=== PATIENT | female | born 1980 | race Hispanic/Latino ===

== ENCOUNTER 2018-02-18 09:39 | Outpatient (AMBR) | payer MEDICARE, MEDICAID, SELFPAY ==
--- NOTE | 2018-02-18 10:12 | PT.OIERPT ---
PT OP Initial Eval Patient Information Visit Reasons: CERVICAL/LUMBAR PAIN Medical Diagnosis: M05.7; M54.4 Treatment Dx #1: Neck Pain Start of Care: 02/18/18 Date of Onset: 5 year ago Initial Assessment Subjective Pt is a 37 y/o female c/o chronic neck pain (11/28) with intermittent numbness and tingling started several years ago. Pt has been dx with RA for many years and now it's taking a toll on her body. Pt has difficulty with sleeping, chores, self care activities, and performing normal ADLs. Pt stated that she is pending xray for her whole body. Objective C/S AROM: all motions are WFL but pain with end range flexion and sidebend bilaterally Scapula MMTs: grossly 3/5 BUE AROM: all motions are WNL BUE MMTs: grossly 3+/5 Deep Neck Flexor Endurance Test: 5 sec NDI score: 30% Assessment Pt demonstrate neck pain with decrease AROM leading to decline function and difficulty with ADLs. Pt will attempt physical therapy if pain persist Pt will be refer back to MD. Short Term and Microwave Remote Sensing Scientist Goals 1) Decrease neck pain and NDI to 10 % in 4 wks to be able to chores with less limitation 2) Increase C/S AROM WNL in 4 wks to be able to perform self care activities 3) Increase deep neck flexor endurance test to 30 sec in 4 wks to be able to perform driving with less limitation 4) Indep with HEP Treatment Plan 1) Manual Therapy 2) Therapeutic Activities 3) Therapeutic Exercises 4) Modalities (ice, heat, e-stim) Frequency and Duration 2 x wk for 4 wks Certification Dates: 02/18/18 to 05/21/18 Office Procedures PT Outpatient G-Codes Date of Service PT Date of Service: 02/18/18 G-Codes Changing & Maintaining Body Post Body Position Current Status G-Code: G8981: CJ 20-40% Body Position Goal Status G-Code: G8982: CI 1-20% PT Procedures PT Date of Service: 02/18/18 OP PT Eval Mod Complex 30 minutes: Yes
--- NOTE | 2018-02-18 10:21 | PTNOTE_ITS ---
PT OP Initial Eval Patient Information Visit Reasons: CERVICAL/LUMBAR PAIN Medical Diagnosis: M05.7; M54.4 Treatment Dx #1: Neck Pain Start of Care: 02/18/18 Date of Onset: 5 year ago Initial Assessment Subjective Pt is a 37 y/o female c/o chronic neck pain (11/28) with intermittent numbness and tingling started several years ago. Pt has been dx with RA for many years and now it's taking a toll on her body. Pt has difficulty with sleeping, chores , self care activities, and performing normal ADLs. Pt stated that she is pending xray for her whole body. Objective C/S AROM: all motions are WFL but pain with end range flexion and sidebend bilaterally Scapula MMTs: grossly 3/5 BUE AROM: all motions are WNL BUE MMTs: grossly 3+/5 Deep Neck Flexor Endurance Test: 5 sec NDI score: 30% Assessment Pt demonstrate neck pain with decrease AROM leading to decline function and difficulty with ADLs. Pt will attempt physical therapy if pain persist Pt will be refer back to MD. Short Term and Nursing Home Goals 1) Decrease neck pain and NDI to 10 % in 4 wks to be able to chores with less limitation 2) Increase C/S AROM WNL in 4 wks to be able to perform self care activities 3) Increase deep neck flexor endurance test to 30 sec in 4 wks to be able to perform driving with less limitation 4) Indep with HEP Treatment Plan 1) Manual Therapy 2) Therapeutic Activities 3) Therapeutic Exercises 4) Modalities (ice, heat, e-stim) Frequency and Duration 2 x wk for 4 wks Certification Dates: 02/18/18 to 05/21/18 Office Procedures PT Outpatient G-Codes Date of Service PT Date of Service: 02/18/18 G-Codes Changing & Maintaining Body Post Body Position Current Status G-Code: G8981: CJ 20-40% Body Position Goal Status G-Code: G8982: CI 1-20% PT Procedures PT Date of Service: 02/18/18 OP PT Eval Mod Complex 30 minutes: Yes
== END 2018-02-18 10:11 | disposition home or self-care (01) ==
LOC: HODPTST 09:44
PROVIDERS: PCP Internal Medicine Rheumatology; Referring Provider Internal Medicine Rheumatology; Visit Provider Internal Medicine Rheumatology
DX: M54.2 Cervicalgia (principal); G89.29 Other chronic pain; R20.0 Anesthesia of skin
CPT/HCPCS: 97162; G8981; G8982

== ENCOUNTER 2018-03-03 10:30 | Outpatient (AMBR) | payer MEDICARE, MEDICAID, SELFPAY ==
--- NOTE | 2018-02-24 16:12 | PT.ODAYNRPT ---
PT Outpatient Daily Note Date of Service: February 24, 2018 OP Daily Note Visit Reasons: cervical/lumbar Outpatient Physical Therapy Treatment Date: 02/24/18 Subjective: pt reported tightness and some pain of the neck upon visit. Objective: see flow sheet. Assessment: started with PROM of the neck in supine with hotpack to help her relax her neck. at first pt seemed guarded during PROM but was able to full relax after a few reps. followed by STM in sitting position and palpated trigger points to both sides of the neck. pt tolerated the pressure but advised pt to continue massage at home or heat to reduce muscle tension, pt understood. pt was able to deboner onto the handles of the sci-fit well with no complaints and finished the time requested. had a little difficulty understanding chin tucks using thera band. Plan: continue POC per PT. Length of Time (minutes) of Treatment: 30 Minutes Office Procedures PT Procedures PT Date of Service: 02/24/18 Therapeutic Exercise 15 minutes: Yes Manual Incident Handler 15 minutes: Yes
--- NOTE | 2018-02-24 16:16 | PTNOTE_ITS ---
PT Outpatient Daily Note Date of Service: February 24, 2018 OP Daily Note Visit Reasons: cervical/lumbar Outpatient Physical Therapy Treatment Date: 02/24/18 Subjective: pt reported tightness and some pain of the neck upon visit. Objective: see flow sheet. Assessment: started with PROM of the neck in supine with hotpack to help her relax her neck. at first pt seemed guarded during PROM but was able to full relax after a few reps. followed by STM in sitting position and palpated trigger points to both sides of the neck. pt tolerated the pressure but advised pt to continue massage at home or heat to reduce muscle tension, pt understood. pt was able to leasing consultant onto the handles of the sci-fit well with no complaints and finished the time requested. had a little difficulty understanding chin tucks using thera band. Plan: continue POC per PT. Length of Time (minutes) of Treatment: 30 Minutes Office Procedures PT Procedures PT Date of Service: 02/24/18 Therapeutic Exercise 15 minutes: Yes Manual Junior Network Administrator 15 minutes: Yes
--- NOTE | 2018-03-03 11:37 | PTNOTE_ITS ---
PT Outpatient Daily Note Date of Service: March 03, 2018 OP Daily Note Visit Reasons: cervical/lumbar Outpatient Physical Therapy Treatment Date: 03/03/18 Subjective: Pt's neck pain still feels the same. No change after last treatment session Objective: Please see flow chart for list of ther ex performed Assessment: decrease levator scapulae tension. Pt had difficulty with performing chin tuck correctly. Plan: Continue with PT Length of Time (minutes) of Treatment: 30 Minutes Office Procedures PT Procedures PT Date of Service: 02/24/18 Therapeutic Exercise 15 minutes: Yes Manual Corporation Secretary 15 minutes: Yes PT Procedures PT Date of Service: 03/03/18 Therapeutic Exercise 30 minutes: Yes
== END 2018-03-20 23:59 | disposition home or self-care (01) ==
PROVIDERS: PCP Internal Medicine Rheumatology; Referring Provider Internal Medicine Rheumatology; Visit Provider Internal Medicine Rheumatology
DX: M54.42 Lumbago with sciatica, left side (principal); M54.2 Cervicalgia; R20.0 Anesthesia of skin; M06.9 Rheumatoid arthritis, unspecified
CPT/HCPCS: 97110; 97140